=== PATIENT | male | born 1950 | race Caucasian/White ===

== ENCOUNTER → 2017-05-08 | Outpatient (CLI) | payer OTHER ==
[~2017-05-08] VITALS: Ht 172.7 cm; Wt 83.9 kg
[~2017-05-08] MED LIST: ACCUPRIL40 MG PO; ASPIRIN EC81 M1 PO; CEPHALEXIN 500500 M1 PO; CILOSTAZOL 100100 MG PO; DEMADEX20 MG PO; FISH OIL 1,0001 EAC5 PO; LOPRESSOR 50 MG50 M1 PO; POTASSIUM20 PO; PROSCAR 5MG TABL5 M1 PO; SIMVASTATIN40 MG PO; VANCOMYCIN1.5 GM/252
--- NOTE | ~2017-05-08 | EKG ---
[place] [address] [facility] [place] [address] ELECTROCARDIOGRAM REPORT Name: JACKSON SHAFFER [id number] Admission: 05/08/17 Attend Phys: Chong Judge MD Discharge: Date of : 46 Report #: [id number] THIS REPORT FOR: //name// [facility] Test Date: 2017-05-08 Test Time: 08:02:19 Pat Name: JACKSON SHAFFER Department: Room: Gender: Service Aide: Gina SCHULZ : 1950 Requested By: Chong Judge Order Number: [id number] MD: Warner Ladd Measurements Intervals [place] Rate: 48 P: 43 DE: 223 QRS: -58 QRSD: 157 T: 7 QT: 492 QTc: 440 Interpretive Statements Sinus bradycardia Borderline prolonged DE interval Probable left atrial enlargement Right bundle branch block Anteroseptal infarct, age indeterminate Baseline wander in lead(s) V4 Compared to ECG 06/14/2006 07:46:28 Sinus rhythm has replaced atrial flutter right bundle branch block is now present Electronically Signed On 05-09-2017 7:40:44 SANDING SUPERVISOR by Warner Ladd [email or web address] <ELECTRONICALLY SIGNED> By: Warner Ladd MD, [facility] 05/09/17 0740 08 08 Warner Ladd MD, [facility] /EPI
--- NOTE | ~2017-05-08 | CATHLAB ---
[facility] [address] [place] [address] INVASIVE PROCEDURE REPORT Name: JACKSON SHAFFER Room #: REG [facility]#: [id number] Admission: 05/08/17 Attend Phys: Chong Judge MD Discharge: Date of : 46 Date of Service: 05/08/17 173 Report #: [id number] THIS REPORT FOR: //name// APPROVED REPORT Patient Details Patient Status: Out-Patient Room #: The patient is a 67 year-old male Event Personnel Chong Judge Second Chef, Deni Goldman RN, Susy Castañeda CVT Monitor, Leif Kate Scrub Procedures Performed Left Heart Cath Coronaries, Bypass Grafts [id number] CCORCABG Indication Dyspnea, Cardiomyopathy Risk Factors Peripheral Vascular Disease, Hypercholesterolemia, Coronary Artery DiseaseHypertension, Tobacco History () Previous Procedures/Diagnoses Previous CABG Procedure Narrative The Right Groin^ was infiltrated with subcutaneous anesthesia. A PINNACLE 4FR Sheath #[id number] sheath was inserted into the RFA 4 FR^. Coronary angiography was performed using coronary diagnostic catheters. The right coronary system was accessed and visualized with a JR4 catheter. The left coronary system was accessed and visualized with a JL4 catheter. The left ventricle was accessed and visualized with a PIGTAIL catheter. Left ventricular/Aortic Valve gradient assessed via catheter pullback. Hemostasis was obtained with manual pressure following sheath removal without any complications. The patient tolerated the procedure well and there were no complications associated with the procedure. There was no hematoma. Intraoperative Conscious Sedation Sedation start time: 9.12 Case end Time: 9.35 Versed 1.5 mg [facility] [address] [place] [address] INVASIVE PROCEDURE REPORT Name: JACKSON SHAFFER Room #: REG CL [facility]#: [id number] Admission: 05/08/17 Attend Phys: Chong Judge MD Discharge: Date of : 46 Date of Service: 05/08/17 1731 Report #: [id number] Fluoro Time: 10.50 minutes Dose: DAP 7213.20 cGycm2 810 mGy Contrast Type and Amount: Omnipaque 150 ml Coronary Angiography The patient's coronary anatomy is right dominant. [place] Artery Percent Stenosis Left Main: 60 % Prox LAD: 100 % Mid/Distal LAD: % Circumflex: 50 % RCA: 100 % Ramus: % Grafts (Complete if Previous CABG=Yes: Percent Stenosis) Diagnostic Cath LAD Patent ARGUELLO graft with end-to-side anastomosis to the mid LAD. Diagonal 1 Patent free radial conduit with an end-to-side anastomosis to D1, with no flow-limiting lesions. OM1 Patent SVG with an end-to-side anastomosis to OM1, with no flow limiting lesions. Right Coronary Patent SVG with an end-to-side anastomosis to the PDA with no flow-limiting lesions. After the anastomosis, there is both antegrade and retrograde blood flow. Left Ventriculography The left ventricle is normal in size with decreased contractility. The left ventricular ejection fraction is estimated to be 45-50%. Hemodynamics The aortic pressure is 191/78 mmHg with a mean of 105 mmHg. The left ventricular pressure is 172/21 mmHg with a mean of mmHg. The left ventricular end diastolic pressure is 38 mmHg. Conclusion 1. Severe three-vessel CAD. 2. Patent grafts including ARGUELLO to LAD, free radial conduit to D1, SVG to OM1 and SVG to PDA. 3. Mild global LV dysfunction, EF 45-50%. 4. Recommend medical therapy. <ELECTRONICALLY SIGNED> By: Chong Judge MD 05/08/17 173 30 30 Chong Judge MD /INF
[2017-05-08 07:59] VITALS: BP 164/69
[2017-05-08 08:18] LABS: HEMATOCRIT 46.4 % (42.0-52.0); HEMOGLOBIN 16.1 gm/dL (14.0-18.0); MCH 34.9 pg (26.0-34.0); MCHC 34.6 g/dL (28.0-37.0); MCV 100.8 fL (80.0-100.0); RBC 4.61 mil/uL (4.50-6.00); RDW 15.5 % (10.5-14.5); WBC 4.6 thou/uL (4.0-11.0)
[2017-05-08 08:33] LABS: CALCIUM 9.2 mg/dL (8.5-10.1); CREATININE 1.2 mg/dL (0.7-1.3); POTASSIUM 4.6 mmol/L (3.5-5.1)
== END ==
LOC: CATH 06:39
PROVIDERS: Internal Medicine Cardiovascular Disease
DX: I25.10 Atherosclerotic heart disease of native coronary artery without angina pectoris (principal); I10 Essential (primary) hypertension; I73.89 Other specified peripheral vascular diseases; E78.00 Pure hypercholesterolemia, unspecified; F17.210 Nicotine dependence, cigarettes, uncomplicated; Z95.1 Presence of aortocoronary bypass graft; Z79.899 Other long term (current) drug therapy; Z79.82 Long term (current) use of aspirin; Z98.890 Other specified postprocedural states

== ENCOUNTER → 2019-08-26 | Outpatient (CLI) | payer OTHER | LOC: SJCVC 13:28 | DX: R94.31 Abnormal electrocardiogram [ECG] [EKG] (principal); I11.9 Hypertensive heart disease without heart failure; R00.1 Bradycardia, unspecified; I44.0 Atrioventricular block, first degree; I25.10 Atherosclerotic heart disease of native coronary artery without angina pectoris; E78.00 Pure hypercholesterolemia, unspecified ==

== ENCOUNTER 2019-11-19 06:17 | Day surgery (SDC) | payer OTHER ==
[~2019-11-19] VITALS: Ht 172.7 cm; Wt 79.4 kg
[~2019-11-19 06:17] MED LIST changes: +TOPROL XL25 MG PO; +TYLENOL EXTRA500 MG PO
[2019-11-19 07:00] VITALS: BP 164/58
[2019-11-19] MEDS ORDERED: LORCET 5-325 M1 EACH PO (09:33)
--- NOTE | 2019-11-19 09:42 | H ---
[facility] [place] [address] [place] [address] HISTORY AND PHYSICAL Name: JACKSON SHAFFER Room #: 150-2 [facility] M.R.#: [id number] Admission: 11/19/19 Attend Phys: Jagdish Anderson MD Discharge: Date of : 46 Report #: [id number] THIS REPORT FOR: cc: Dionisio Pelletier MD,Jagdish Espinosa MD, MD ~ CC: Álvaro Yeboah MD HISTORY OF PRESENT ILLNESS: The patient is a 69-year-old who has been complaining of back pain. 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 The patient also was found to have lymphadenopathy. CAT scan showed a possible mass behind the nose. He was found to have left cervical adenopathy. No history of weight loss. Appetite has been so-so, not great. Bowel, he had some constipation issue. The patient has, on exam, a large lymph node in the posterior upper neck. The patient is brought in for biopsy, possible excisional biopsy, possible incisional. PAST MEDICAL HISTORY: The patient has a past medical history of coronary artery disease, having bypass surgery in 2006. Also carotid artery disease, COPD, high blood pressure. PAST SURGICAL HISTORY: Coronary artery bypass graft 2006, cyst removal, foot surgery, peripheral vascular intervention, stent to the left SFA, rotator cuff repair, umbilical hernia repair. FAMILY HISTORY: Mother had heart failure. Father had heart attack. High blood pressure in the family. SOCIAL HISTORY: The patient smokes about a pack a day for 50 years. He stopped smoking in first part of October. The patient does drink about 10 drinks a week. The patient worked as a retired vascular technologist. ALLERGIES: ALLERGIC TO INSPRA, WHICH CAUSES GYNECOMASTIA. ALLERGY TO SPIRONOLACTONE, AGAIN CAUSES GYNECOMASTIA. REVIEW OF SYSTEMS: Back pain as mentioned above. Some difficulty hearing. A stuffy nose feeling. PHYSICAL EXAMINATION: GENERAL: He is a well-developed, well-nourished male, in no acute distress. HEENT: Pupils react to light. Extraocular muscles are intact. Oropharynx is clear. NECK: Soft and supple. There is a 2-2.5 cm posterior cervical lymph node identified. There is mild adenopathy. This does not feel like the parotid [facility] [address] [place] [address] HISTORY AND PHYSICAL Name: JACKSON SHAFFER Room #: 150-2 [facility]..#: [id number] Admission: 11/19/19 Attend Phys: Jagdish Anderson MD Discharge: Date of : 46 Report #: [id number]. LUNGS: Clear to auscultation. HEART: Regular rate and rhythm. No murmur or gallop. ABDOMEN: Soft, nondistended, nontender. EXTREMITIES: No cyanosis, clubbing or edema. Strength is 5+5. NEUROLOGIC: No sensory deficit. IMPRESSION: The patient with likely a metastatic disease to the spine at T12 with back pain. His back pain is in the lower part of the back. The patient has a mass behind the nasal cavity on PET scan. 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 The patient is not going to be a candidate for any radical resection because of metastatic disease. The patient is brought in for tissue diagnosis. If the node is easily removed, we will remove it, if not, incisional biopsy. Pathology is requested. The patient will receive preoperative IV antibiotics. <ELECTRONICALLY SIGNED> By: Jagdish Anderson MD 11/19/19 0942 01 2225 Jagdish Anderson MD /nt
--- NOTE | 2019-12-02 00:05 | PATH ---
[facility] [place] [address] PATHOLOGY RPT PROCEDURE Name: JACKSON SHAFFER Room #: DEP [facility].#: [id number] Admission: 11/19/19 Date of : 46 Discharge: 11/19/19 Report #: [id number] Path Case #: [id number] [facility] Accession Number: [id number] . 01 Material submitted: . lymph node - LEFT POSTERIOR CERVICAL LYMPH NODE. Modifiers: left, posterior . 01 Clinical history: . 69 year old male with a nasopharyngeal mass, cervical and mediastinal adenopathy, and bone lesions. . . 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 - Please see comment. . The cervical lymph node shows a metastatic, poorly differentiated carcinoma with architectural, morphologic and immunophenotypic characteristics of a small cell (undifferentiated)neuroendocrine carcinoma. . The primary tumor of origin cannot be elucidated on a histologic or immunophenotypic basis. Small cell (undifferentiated) neuroendocrine carcinoma with this immunophenotype is known to occur in numerous anatomic sites, including the nasopharynx/sinonasal tract. Clinical correlation is suggested. . . . . . . . . otherwise reported to occur within the sinonasal tract. And of the neuroendocrine neoplasms, small cell undifferentiated neuroendocrine carcinoma is the most common morphologic subtype in that area. . Clinical correlation is suggested. . The case is discussed on 11/26/[address] Jagdish Anderson, Keenan Yeboah, and Álvaro Kaba. (SERGIOK:maxi; 11/27/2019) . . . Special studies report received from [facility], [facility] [address] PATHOLOGY RPT PROCEDURE Name: DEENAJACKSON PERCY Room #: DEP [facility].#: [id number] Admission: 11/19/19 Date of : 46 Discharge: 11/19/19 Report #: [id number] Path Case #: [id number] [address], [facility], on case [id number], labeled with their number [id number], dated 11/20/2019. . Flow Cytometry: Hematologic Neoplasia Assessment . Clinical History Enlarged lymph node of neck . Indication for Study Rule out lymphoma nad nasypharyngeal carcinoma . Specimen Lymph Node, Cervical, Left Posterior . Viability 24% (7AAD exclusion) . Interpretation Lymph Node, Cervical, Left Posterior: - An abnormal population of YB23-gmqsanqu/JH75-qlzlfkcx cells (12%) is identified. See comments. - No significant lymphoid immunophenotypic abnormalities detected . Comments A non-hematopoietic population of OF19-lvojzble cells is present. CD56 expression by the neoplastic cells is consistent with neuroendocrine differentiation. Cytospin shows many clusters of cohesive large atypical cells. Correlation with the results of the morphologic/immunohistochemical studies is recommended to evaluate for metastatic carcinoma. . Results should be interpreted with caution due to reduced viability of the specimen (24%). . Populations Analyzed Lymphocytes: 3% B-cells: 0.1%, polytypic/polyclonal sIg light chain pattern T-cells: no significant abnormalities of the markers tested CD4:CD8: 2.0 NK cells: 0.3% Other Cells: 12% An abnormal population of OY06-jfdltkem/ DP91-ydyblg-jazzzasm cells is identified. This population comprises approximately 12% of total cells, expresses CD56 and is negative for B-cell markers and T-cell markers. CD45 Negative 85% No significant reactivity with the markers tested Events/Debris: (may represent non-hematolymphoid cells, degenerated cells, debris, unlysed red blood cells, etc.) [address] [address] PATHOLOGY RPT PROCEDURE Name: SHAFFERJACKSON Room #: DEP [facility]..#: [id number] Admission: 11/19/19 Date of : 46 Discharge: 11/19/19 Report #: [id number] Path Case #: [id number] . Morphologic Evaluation A slide was reviewed for automotive quality manager purposes only. . Specimen Description Cell Yield: 12.30X10 and 6 Due to a low cellular viability, an average of 4,348 viable events were acquired per tube. Flow cytometry data derived from an acquisition with less than 10,000 viable events needs to be interpreted within the context of all clinical, laboratory, and morphologic data available. . Reagent(s) Used CD2, CD3, CD4, CD5, CD7, CD8, CD10, CD11b, CD19, CD20, CD23, CD30, CD38, CD43, CD45, CD56, CD57, FMC-7, HLA-DR, kappa, lambda . at [facility] [employer] Ju Burton MD Hematopathologist . . Intended Use Flow cytometry is optimally used to immunophenotypically characterize abnormal populations when they are detected. Negative flow cytometry results do not exclude lymphoma or neoplasia. Possible false negative flow cytometry results may occur in, but are not limited to, the following: neoplastic cells in Hodgkin lymphoma are not typically adequately represented by routine clinical flow cytometry; neoplastic cells may be lost or inadequately represented due to degeneration, sample processing, sampling artifact, or patchy involvement; plasma cells are typically underrepresented by flow cytometry; immature cells/blasts may be underrepresented due to hemodilution; myeloproliferative disorders and low grade myelodysplasia may not have immunophenotypic abnormalities or increased blasts. Correlation with all available clinical, laboratory, and morphologic data is always necessary to assess for the possibility of false negative flow cytometry results and to establish a diagnosis. Each marker in this analysis was used to assess for potential antigenic abnormalities or to evaluate detected abnormalities. . Any image or images that accompany this report are personal service representative images only and should not be used to render a diagnosis. . Disclaimer(s) This test was developed and its performance characteristics determined by [employer] [facility] It has not been cleared or approved by the Food and Drug Administration. . Performing Labs [address] [address] PATHOLOGY RPT PROCEDURE Name: JACKSON SHAFFER Room #: DEP [facility] M.R.#: [id number] Admission: 11/19/19 Date of : 46 Discharge: 11/19/19 Report #: [id number] Path Case #: [id number] [facility] is a business unit of [employer] a wholly-owned subsidiary of [employer]. . This test was performed at [employer] at [address], [place], [address] - Transportation Maintenance Operator: Jose Hawkins MD. . For inquiries, the physician may contact Lab: [phone] . A complete copy of the report is on file. . Professional services performed by [facility] [employer]. at [address], [place] [address]. Technical services performed by [facility]. at [address], [place] [address]. . (MLK:aga 11/23/2019) . [facility] 11/30/2019 1513 Local . 02 Comment: The case was seen in co-review by Dr. Trish Schaeffer who concurs to the above diagnosis. (MLK:maxi; 11/27/2019) . . 02 Addendum: . This addendum is submitted to report the findings of an additional immunohistochemical stain. . Immunohistochemical stain result (block A1): CK5/6 - Tumor cells positive (focal) . The diagnosis remains as previously rendered. (MLK:fitz; 11/30/2019) . . Professional services performed by [facility] at [address] [place] [address]. Technical services performed by [employer] at [address] [place] [address], [address], [place] [address]. [facility]/11/30/2019 Addendum Electronically Signed by David Farrell MD, Pathologist . 02 Electronically signed: . David Farrell MD, Pathologist NPI- [id number] [address] [address] PATHOLOGY RPT PROCEDURE Name: DEENAJACKSON PERCY Room #: DEP [facility]#: [id number] Admission: 11/19/19 Date of : 46 Discharge: 11/19/19 Report #: [id number] Path Case #: [id number] . 01 Gross description: . The specimen is received fresh from the OR labeled with the patient's name, and "left posterior cervical lymph node" consists of a white-mobley lymph node measuring 2.2 x 2.0 x 1.0 cm. The lymph node is bisected to show a white-mobley, firm parenchyma. The normal spongy appearance has been effaced. At this point touch preparation is made, air-dried and stained with Diff-Quik stain. A small portion is submitted in RPMI for flow cytometric analysis and sent for the same. The remainder of the lymph node is bisected and submitted for permanent sections only as A1 and A2. (IUV/db; 11/17/2019) /LBQ 11/19/2019 1445 Local . 02 Microscopic: . Immunohistochemical stain results (block A1) AE1/3 - Tumor cells positive (dot-like pattern) CD56 - Tumor cells positive Synaptophysin - Tumor cells positive Chromogranin - Tumor cells positive (focal) NSE - Tumor cells positive Desmin - Tumor cells negative CD45 - Tumor cells negative (lymphocytes positive) HMB-45 - Tumor cells negative S100 - Tumor cells negative TTF-1 - Tumor cells positive (nuclear / cytoplasmic) CK7 - Tumor cells positive (focal) CD20 - Tumor cells negative CK19 - Tumor cells positive CAM5.2 - Tumor cells positive (MLK:pit; 11/27/2019) . 02 Pathologist provided ICD-10: C7A.1 . 02 CPT . 857563, I16014, T02162 Specimen Comment: A courtesy copy of this report has been sent to [phone] Specimen Comment: [phone] Specimen Comment: Report sent to / DR KABA Performed at: 01 [facility] [address] [id number] MD Dusty Sellers MD Phone: [phone] Performed at: [address] [id number] MD Gilberto Bahena MD Phone: [phone]
--- NOTE | 2019-12-11 11:56 | O ---
[facility] [place] [address] [place] [address] OPERATIVE REPORT Name: JACKSON SHAFFER Room #: DEP [facility].#: [id number] Admission: 11/19/19 Attend Phys: Jagdish Anderson MD Discharge: 11/19/19 Date of : 46 Report #: [id number] THIS REPORT FOR: cc: Dionisio Pelletier MD, Christopher B. MD Chu, Peter Y. MD ~ CC: Álvaro Yeboah MD DATE OF SERVICE: 11/19/2019 PREOPERATIVE DIAGNOSES: 1. Left cervical adenopathy. 2. Bony metastasis to the vertebrae and mass behind the nose. POSTOPERATIVE DIAGNOSES: 1. Left cervical adenopathy. 2. Bony metastasis to the vertebrae and mass behind the nose. PROCEDURE PERFORMED: Excision of enlarged lymph node in the left posterior neck. SURGEON: Jagdish Anderson MD ANESTHESIA: IV sedation, local 0.25% Marcaine. COMPLICATIONS: None. ESTIMATED BLOOD LOSS: 10 mL. PROCEDURE NOTE: With the patient lying slightly left side tilted up, the left neck was prepped and draped in sterile fashion. Timeout was performed. The patient was placed under IV sedation. The patient did well with the sedation. Local 0.25% Marcaine was used to anesthetize the skin. A transverse incision was made over the lymph node. The lymph node was found and then it was located posterior to the lateral aspect of the sternocleidomastoid muscle. The muscle was from the posterior fascia and then part of the muscle did have to be divided to get to the enlarged lymph node. Lymph node was found under some fatty tissue that was behind the muscle. The lymph node was isolated and a small vessel pedicle was clipped. The lymph node was extracted without difficulty. The pathologist was asked to evaluate the specimen and part of it will be safe for flow cytometry. No bleeding was identified. The subcutaneous tissue was reapproximated with 3-0 PDS. Skin was closed with 5-0 PDS [address] [address] OPERATIVE REPORT Name: DEENAJACKSON GREER Room #: [facility].#: [id number] Admission: 11/19/19 Attend Phys: Jagdish Anderson MD Discharge: 11/19/19 Date of : 46 Report #: [id number] subcuticular fashion. Dermabond was applied, 4 x 4, OpSite used for dressing. The patient tolerated the procedure well. <ELECTRONICALLY SIGNED> By: Jagdish Anderson MD 12/11/19 1156 2146 2158 Jagdish Anderson MD /nt
== END 2019-11-19 10:15 | disposition home or self-care (01) ==
LOC: OR 06:17 → TBA 06:20 → OR 10:15
PROVIDERS: ATTEND Surgery
DX: C7A.1 Malignant poorly differentiated neuroendocrine tumors (principal); R59.0 Localized enlarged lymph nodes; I10 Essential (primary) hypertension; I25.10 Atherosclerotic heart disease of native coronary artery without angina pectoris; J44.9 Chronic obstructive pulmonary disease, unspecified; Z98.890 Other specified postprocedural states; Z79.899 Other long term (current) drug therapy; Z95.1 Presence of aortocoronary bypass graft; Z82.49 Family history of ischemic heart disease and other diseases of the circulatory system; Z11.59 Encounter for screening for other viral diseases
CPT/HCPCS: 50010; 50101; 50386; 50403; 51301; 54118; 56525; 56526; 62110; 62850; 70005

== ENCOUNTER → 2019-12-08 | Outpatient (CLI) | payer OTHER ==
[~2019-12-08] MED LIST changes: +LORCET 5-325 M1 EACH PO
[2019-12-08 11:20] LABS: CREATININE 1.4 mg/dL (0.7-1.3)
== END ==
LOC: MRI 10:12
PROVIDERS: ATTEND Internal Medicine
DX: C34.90 Malignant neoplasm of unspecified part of unspecified bronchus or lung (principal); I67.82 Cerebral ischemia